=== PATIENT | male | born 1960 | race Caucasian/White ===

== ENCOUNTER 2021-06-25 17:42 | Emergency (ER) | payer OTHER ==
[~2021-06-25 17:42] MED LIST: ASPIRIN EC81 MG PO; ATIVAN2 MG PO; EFFEXOR XR150 MG PO; EFFEXOR XR75 MG PO; LIPITOR TAB 2020 MG PO; LOPRESSOR 25 MG25 MG PO; LORTAB 10-3251 EACH PO; METOPROLOL SUC100 MG PO; NEURONTIN 400400 MG PO; SEROQUEL300 MG PO; SEROQUEL50 MG PO; WELLBUTRIN XL150 M1 PO
[2021-06-25 20:06] LABS: HEMOGLOBIN 13.5 gm/dl (14.0-17.5); RED BLOOD COUNT 4.66 M/UL (4.20-5.50); WHITE BLOOD COUNT 10.7 K/UL (4.5-11.0)
[2021-06-25 20:19] LABS: BUN/CREATININE RATIO 11 (0-10)
[2021-06-25] MEDS ORDERED: IMODIUM CAP 2 MG2 MG PO (22:47)
[2021-06-25] MEDS ORDERED: ONDANSETRON ODT4 MG SL (22:47)
== END 2021-06-25 23:55 | disposition home or self-care (01) ==
LOC: ER1 17:42
PROVIDERS: Physician Assistant
DX: R19.7 Diarrhea, unspecified (principal); R42 Dizziness and giddiness; N28.9 Disorder of kidney and ureter, unspecified; M54.2 Cervicalgia; I51.9 Heart disease, unspecified; Z95.1 Presence of aortocoronary bypass graft; Z79.82 Long term (current) use of aspirin; Z20.822 Contact with and (suspected) exposure to COVID-19
CPT/HCPCS: 70450; 71045; 72125; 80053; 81001; 82550; 82553; 84484; 85025; 93005; 99285; U0002